=== PATIENT | female | born 1965 | race Caucasian/White ===

== ENCOUNTER 2023-11-07 19:06 | Inpatient (IN) | payer BC, SELFPAY ==
[2023-11-05 19:56] VITALS: BP 174/101
--- NOTE | 2023-11-05 20:14 | ED.GENMED ---
History of Present Illness
General
Chief Complaint: Flank Pain
Source: patient
Exam Limitations: none
Time Seen by Provider: 11/05/23 20:02
Nursing documentation reviewed up to this point in time: agreed with
Travel History
Have you had any contact with someone who has COVID-19?: No
Do you have any symptoms of coronavirus? Fever > 100 degrees, chills, cough, shortness of breath, sore throat, loss of taste or smell, muscle aches, or headache?: No
History of Present Illness
History of Present Illness:
Patient is a 58-year-old she started with little abdominal discomfort yesterday but today started with left flank pain around 1:00 at work. She reports this is worse than childbirth. She is nauseous with this pain. She tried meloxicam but is
unable to swallow pills well and spit it out. She now complains of pain to the left flank which is persistent. She is still nauseous. She has no history of kidney stones.
Review of Systems
Review of Systems
Allergies reviewed?: Yes
All Other Systems: ROS reviewed and negative except as documented in HPI and ROS
Constitutional: Reports no symptoms; Denies fever, fatigue or chills
Respiratory: Reports no symptoms
Cardiac: Reports no symptoms
ABD/GI: Reports no symptoms
Musculoskeletal: Reports other (left flank pain )
Skin: Reports no symptoms
Endocrine: Reports no symptoms
Hematologic/Lymphatic: Reports no symptoms
Psychiatric: Reports no symptoms
Phy Exam
General Physical Exam
General Presentation: no apparent distress
General age: appears stated age
General Skin: warm and dry
General Habitus: normal
General Mental: alert
General Hydration: appears well hydrated
Gastrointestinal Exam
Gastrointestinal Exam: non tender and soft
Neurological Exam
Neurological Exam: alert and oriented x3
Musculoskeletal Exam
Musculoskeletal Exam: full ROM
Skin Exam
Skin Exam: normal color and warm/dry
Psychiatric Exam
Psychiatric Exam: normal mood/affect
Course
Orders/Labs/Results
Orders:
Orders
11/05/23 19:50
EKG [Electrocardiogram (*1)] Urgent
Reason for Study: Chest Pain
EKG- Treatment ONCE
11/05/23 20:23
Complete Blood Count/With Diff Urgent
Comprehensive Metabolic Panel Urgent
11/05/23 20:24
0.9% Sodium Chloride 1000 ml [Nss] 1,000 ml IV BOLUS
Ketorolac [Toradol] 15 mg IV NOW STA
Ondansetron Injectable [Zofran] 4 mg IV NOW STA
11/05/23 20:33
UA Reflex to Culture [Urinalysis Reflex To Culture] Urgent
Date Specimen was Collected: 11/05/23
Time Specimen was Collected: 20:31
Urine Microscopic Reflex Cult Urgent
Urine Culture Urgent
ALEK Source: U
Specimen Description:
Date Specimen was Collected: 11/05/23
Time Specimen was Collected: 20:31
11/05/23 21:12
CT Abd/Pel (IV only)-DH only Urgent
Comment:
Reason For Exam: left flank pain + UTI
11/05/23 21:38
CefTRIAXone [Rocephin] 1,000 mg IV NOW STA
11/05/23 22:18
Ondansetron Injectable [Zofran] 4 mg IV NOW STA
11/05/23 22:46
Admit/Transfer Patient As Directed
Co-Sign Provider:
Level of Care: Observation services
Assign to:: Medical/Surgical
Physician / Group: Mario
Diagnosis: Left Nephrolithiasis with Hydronephrosis
11/05/23 22:47
Code Status As Directed
Resuscitation Status: Full Code
Abnormal Lab Results
11/05/23 11/05/23
20: 20:33
Hgb 10.8 L g/dL
(12.0-16.0)
Hct 33.4 L %
(37.0-47.0)
MCV 68.7 L fL
(81.0-99.0)
MCH 22.2 L pg
(27.0-31.0)
MCHC 32.3 L g/dL
(33.0-37.0)
RDW 16.0 H %
(11.5-14.5)
Absolute Neuts (auto) 7.6 H 10^3/uL
(1.4-6.5)
Absolute Lymphs (auto) 1.1 L 10^3/uL
(1.2-3.4)
Neutrophils % 80.6 H %
(42.2-75.2)
Lymphocytes % 11.4 L %
(20.5-51.1)
Sodium 132 L mmol/L
(135-145)
Carbon Dioxide 19 L mmol/L
(22-30)
Glucose 149 H mg/dl
(70-99)
Urine Ketones 3+ A
(Negative)
Ur Occult Blood Reflex 2+ A
(Negative)
Urine Nitrite (Reflex) Positive A
(Negative)
Leukocyte Esterase Rfl 2+ A
(Negative)
Urine WBC (Reflex) >100 A /HPF
(0-5)
Urine Bacteria (Reflex) Many A
(Negative)
11/05/23 20:23
11/05/23 20:23
Vital Signs
Initial and Last Documented VS:
Initial Vital Signs
Temp Pulse Resp BP Pulse Ox
98.1 F 108 20 174/101 99
11/05/23 19:56 11/05/23 19:56 11/05/23 19:56 11/05/23 19:56 11/05/23 19:56
Last Documented Vital Signs
Temp Pulse Resp BP Pulse Ox
98.1 F 90 20 174/101 95
11/05/23 19:56 11/05/23 22:26 11/05/23 19:56 11/05/23 19:56 11/05/23 22:26
MDM/Problems Addressed
Differential Diagnosis Includes:
Not limited to renal colic, UTI, pyelonephritis less likely diverticulitis
MDM/Problems Addressed:
Patient is a 58-year-old female who presents to the ER complaining left flank pain. Patient had slight abdominal discomfort last night however started today with left flank pain associate with nausea. Patient denies any fevers and is afebrile here
with a normal white count abdomen is soft and nontender no prior history of diverticulitis in the past. Urine does appear dirty with nitrates and greater than 100 white blood cells. Case discussed with radiology will order CT with IV contrast to
further evaluate pyelonephritis and look for hydronephrosis.
2207: CAT scan shows a 4 mm calculus in the proximal left ureter at the UPJ partially obstructive and causes mild left hydro. Urinalysis is infected. IV Rocephin ordered. Urology /hospitalist made aware. Will admit patient remains
hemodynamically stable in no acute distress
*Critical Care Note
Total Time (30-74mins, 75-104mins- exclusive of procedures): Not Applicable
Patient Management
Discussion with other providers: [employer] (urology DR Bean )
ED Attending Note
-
Portions of this chart may have been created with voice recognition software.� Occasional wrong word or��sound alike� substitutions may have occurred due to the inherent limitations of voice recognition software.
Discharge Plan
Departure
Patient Disposition: Admit
Date of Disposition: 11/05/23
Time of Disposition: 22:08
Presentation/result/management discussed w/ accepting MD/DO: Hospitalist
Condition: Fair
Covid-19: Not Applicable
Discharge Problem:
infected ureteral stone
Prescriptions:
No Action
meloxicam 15 mg tablet
15 mg PO DAILY PRN (Reason: knee/shoulder pain)
diazepam 2 mg tablet
2 - 4 mg PO Q6H PRN (Reason: vertigo)
Patient Comments:
11/05/2023: last filled 08/10/23, 20 tabs for 5 days from [facility]
omeprazole 20 mg Tablet,Disintegrat, Delay Rel
20 mg PO DAILY
Referrals:
NONE,* [Active] -
Interventions
Interventions:
*Risk Screen - Suicide Last Done: 11/05/23 20:39
*General Assessment Last Done: 11/05/23 20:39
*Neglect/Abuse Screening Last Done: 11/05/23 20:39
ED- Fall Risk Assessment Last Done: 11/05/23 20:39
EV-Kructx-Mogjmkazqu Assessment Last Done: 11/05/23 20:39
ED-Female Genitourinary Assessment Last Done: 11/05/23 20:39
Discharge Date and Time
Print Language: LAO
[2023-11-05] MEDS: ZOFRAN 4 MG IV ×2 (20:27→22:20)
[2023-11-05] MEDS: TORADOL 15 MG IV (20:27)
[2023-11-05] MEDS: NSS 1000 IV (20:28)
[2023-11-05 20:30] LABS: % Basophils 0.7 % (0-2); % Eosinophils 0.3 % (0-6); % Immature Granulocytes 0.4 % (0-0.5); % Lymphocytes 11.4 % (20.5-51.1); % Monocytes 6.6 % (1.7-9.3); % Neutrophils 80.6 % (42.2-75.2); Absolute Basophils 0.1 10^3/uL (0-0.2); Absolute Lymphocytes 1.1 10^3/uL (1.2-3.4); Absolute Monocytes 0.6 10^3/uL (0.1-0.6); Absolute Neutrophils 7.6 10^3/uL (1.4-6.5); Hematocrit 33.4 % (37.0-47.0); Hemoglobin 10.8 g/dL (12.0-16.0); Mean Corp Hgb Conc. 32.3 g/dL (33.0-37.0); Mean Corpuscular Hgb 22.2 pg (27.0-31.0); Mean Corpuscular Volume 68.7 fL (81.0-99.0); Mean Platelet Volume 9.4 fL (7.4-10.4); Nucleated Red Blood Cells % 0 %; Platelet Count 332 10^3/uL (130-400); Red Blood Cell Count 4.86 10^6/uL (4.20-5.40); White Blood Cell Count 9.5 10^3/uL (4.8-10.8)
[2023-11-05 20:39] LABS: Urine Albumin Trace (Neg - Trace); Urine Bilirubin Negative (Negative); Urine Character Slightly Cloudy (Clear); Urine Color Yellow; Urine Glucose Negative (Negative); Urine Ketone 3+ (Negative); Urine Leukocyte 2+ (Negative); Urine Nitrite Positive (Negative); Urine Occult Blood 2+ (Negative); Urine Urobilinogen Negative (Neg - 1+)
[2023-11-05 20:46] LABS: Urine Bacteria Many (Negative); Urine Squamous Cell 0-2 /LPF (Few); Urine White Cell >100 /HPF (0-5)
[2023-11-05 20:47] LABS: ALT (SGPT) 14 U/L (0-35); AST (SGOT) 26 U/L (14-36); Albumin 4.1 g/dl (3.5-5.0); Alkaline Phosphatase 111 U/L (38-126); Blood Urea Nitrogen 11 mg/dl (7-17); Calcium 9.2 mg/dl (8.4-10.2); Carbon Dioxide 19 mmol/L (22-30); Chloride 104 mmol/L (98-107); Glucose 149 mg/dl (70-99); Potassium 3.5 mmol/L (3.5-5.1); Sodium 132 mmol/L (135-145); Total Bilirubin 1.2 mg/dl (0.2-1.3); Total Protein 6.9 g/dl (6.3-8.2); eGFR > 60.00
[2023-11-05] MEDS: ROCEPHIN 1000 MG IV (21:57)
--- NOTE | 2023-11-05 22:33 | HPS.HSE ---
Addendum entered and electronically signed by Wander Martin DO 11/05/23 23:18:
Addendum to plan
Left Nephrolithiasis
- Order to strain urine placed
- see rest of plan as below
Hyponatremia
- Na 132. Likely hypoosmotic hypovolemic etiology
- S/P 1LNS in ER. Continue NS @ 100cc/hr and trend for improvement.
Original Note:
Family Physician
-
Family Physician: Kush Dumont
Chief Complaint
-
Left Flank Pain/N/V x 3 days, more severe today
History of Present Illness
58yo F with PMH GERD, Aortic Stenosis, Vertigo, Inability to tolerate oral medications (unless possibly crushed) presents to ER with complaint of Left Flank Pain. Pt states about 2-3 days ago she experienced more generalized abdominal discomfort
that she associated with constipation. Today however she noticed severe Left flank pain with nausea and dry heaving. +Mild dysuria today with chills. Denies hx kidney stones or recurrent UTIs. Denies fever, dizziness/LH, CP, palps, wheezing, cough,
sob, vomitting, dysuria, calf or leg pain.
ER course: Pt presents BP 174/19, HR 108, Afebrile. WBC 9.5K. BUN/Cr 11/0.8, BG 149, UA grossly positive. CT a/p: 4 mm calculus in the proximal left ureter at the ureteropelvic junction is partially obstructive and causes mild left hydronephrosis.
Urology notified. S/P 1 gm IV rocephin, 15mg IV toradol, 1LNS, and 4mg IV zofran x 2 in ER.
Medical History
Past Medical History
Past Medical History: Reports Other (GERD, Heart murmur, Vertigo)
Past Surgical History: Reports Other (Cholecystectomy, , Meniscus Repair Right knee)
Social History
Tobacco: Non-smoker
Alcohol: None
Drug: None
Personal:
Living: With Family
Family History
Family History: Not pertinent (Father with CAD s/p [place]. Denies kidney stone or urologic family history. )
Allergies / Home Medications
Allergies reflects when Allergies were last updated in [facility].
Home Medications with original date entered in [facility]
Allergy/Medication List:
Allergies
Allergy/AdvReac Type Severity Reaction Status Date / Time
Penicillins Allergy Unknown Unknown Verified 11/05/23 20:00
Home Medications
diazepam 2 mg tablet 2 - 4 mg PO Q6H PRN vertigo 11/05/23
meloxicam 15 mg tablet 15 mg PO DAILY PRN knee/shoulder pain 11/05/23
omeprazole 20 mg delayed release,disintegrating tablet 20 mg PO DAILY 11/05/23
Review of Systems
-
A 12 point ROS was completed and negative except as noted: Yes
Physical Exam
Vital Signs
Vital Signs
Temp Pulse Resp BP Pulse Ox
98.1 F 90 20 174/101 95
11/05/23 19:56 11/05/23 22:26 11/05/23 19:56 11/05/23 19:56 11/05/23 22:26
Physical Exam
General: Well Developed, Well Nourished and No Apparent Distress
HEENT: NormoCephalic, Moist mucous membranes and Atraumatic
Respiratory: Clear
Cardiac: S1/S2, Regular Rhythm, Murmur and Rub
GI: Soft, Non Tender, Non Distended and Normal Bowel Sounds; No Organomegaly
Rectal: Deferred by Provider
Genito-urinary: Other (Minimal Left CVA TTP. )
Musculoskeletal: No Clubbing, No Cyanosis and No Edema
Skin: Warm and Dry; No Rash
Neuro: Awake, Alert, Oriented, AO x 3 and Nonfocal/grossly intact
Hematologic/Lymphatic: No Lymphadenopathy
Psych: Calm
Laboratory Results
-
11/05/23 20:23
11/05/23 20:23
Laboratory Results
Total Bilirubin 1.2 mg/dl (0.2-1.3) 11/05/23 20:23
AST 26 U/L (14-36) 11/05/23 20:23
ALT 14 U/L (0-35) 11/05/23 20:23
Alkaline Phosphatase 111 U/L (38-126) 11/05/23 20:23
Data Reviewed
-
Diagnostic Radiology: Image Personally Visualized and interpreted
CT Scan: Image Personally Visualized and interpreted
Lab Data: Labs Reviewed by me
Old Records: Reviewed
Impression/Plan
-
Left Nephrolithiasis / Left Hydronephrosis
- 2-3 day complaint of abdominal pain with left flank pain
- Afebrile. WBC 9.5K. S/P 15mg IV toradol, 1LNS, 4mg IV zofran in ER.
- Continue 15mg IV toradol prn and 4mg IV morphine Q6h prn.
- Continue NS @ 100cc/hr
- Will defer Flomax as pt reports unable to tolerate PO
- NPO. Consult urology.
UTI
- UA Many Bact, >100WBC, 2+LE, (-) Nitrite, 2+Blood
- Continue Rocephin 1gm IV daily started in ER. Follow up UCx
Microcytic Anemia
- Hgb 10.8 g/dL. MCV 68. No prior studies. Denies bleeding
- Check iron studies
GERD
- Convert PPI to IV. States she can only take liquid meds.
Vertigo
- Continue home prn valium. Likely to aid with anxiety from #1
Aortic Stenosis
- TTE 11/05/2023: EF 55-60%, no WMA, Normal Diastolic Dysfunction, Mild-Mod A.S Valve Area 1.2 CM^2
- Close monitoring of pre-load and cardiopulm status with IVF
Inability to tolerate tablet form of medications
- Noted. Hesitant to try meds crushed as well.
Diet - NPO
DVT PPx - Lovenox
Code Status - Full Code
[2023-11-06] VITALS (22 sets, daily range): BP systolic 97–174; BP diastolic 63–110; BMI 33.5; BMI 33.6
[2023-11-06] MEDS: NSS 1000 IV ×2 (00:06→10:40)
[2023-11-06 05:37] LABS: % Basophils 0.4 % (0-2); % Eosinophils 0.3 % (0-6); % Immature Granulocytes 0.3 % (0-0.5); % Lymphocytes 15.8 % (20.5-51.1); % Monocytes 5.9 % (1.7-9.3); % Neutrophils 77.3 % (42.2-75.2); Absolute Basophils 0.1 10^3/uL (0-0.2); Absolute Lymphocytes 1.8 10^3/uL (1.2-3.4); Absolute Monocytes 0.7 10^3/uL (0.1-0.6); Absolute Neutrophils 8.8 10^3/uL (1.4-6.5); Hemoglobin 9.9 g/dL (12.0-16.0); Mean Corp Hgb Conc. 30.9 g/dL (33.0-37.0); Mean Corpuscular Hgb 22.4 pg (27.0-31.0); Mean Corpuscular Volume 72.6 fL (81.0-99.0); Mean Platelet Volume 9.6 fL (7.4-10.4); Nucleated Red Blood Cells % 0 %; Platelet Count 279 10^3/uL (130-400); Red Blood Cell Count 4.41 10^6/uL (4.20-5.40); Red Cell Dist. Width 15.9 % (11.5-14.5); White Blood Cell Count 11.4 10^3/uL (4.8-10.8)
[2023-11-06] MEDS: TORADOL 15 MG IV ×3 (05:43→21:48)
[2023-11-06] MEDS: ZOFRAN 4 MG IV (05:47)
[2023-11-06 06:06] LABS: Blood Urea Nitrogen 10 mg/dl (7-17); Calcium 8.7 mg/dl (8.4-10.2); Carbon Dioxide 25 mmol/L (22-30); Chloride 108 mmol/L (98-107); Estimated Creatinine Clearance 83 ml/min; Glucose 104 mg/dl (70-99); Iron 42 ug/dl (37-170); Potassium 3.8 mmol/L (3.5-5.1); Sodium 137 mmol/L (135-145); eGFR > 60.00
[2023-11-06 06:15] LABS: Percent Saturation 11 % (20-50); Total Iron Binding Capacity 358 ug/dl (265-497)
[2023-11-06] MEDS: MORPHINE SULFATE 4 MG IV (06:23)
[2023-11-06] MEDS: PROTONIX IV 40 MG IV (08:44)
[2023-11-06] MEDS: NSS (PRESERVATIVE FREE) 10 ML IV (08:45)
--- NOTE | 2023-11-06 09:12 | W.PN.URO.CBU ---
Today's Communication / Plan
-
npo to op room
Assessment / Plan
-
partially obstructing left upj stone with elevating white count and nitrate pos u/a and ongoing severe pain
Diagnosis
-
Date of Service: November 06, 2023
-
Patient Diagnosis:left 4 mm stone intractable pain an partial obstruction with elevatd wbc today and nitrates in urine
Post Op Day:
Subjective
-
significant left flank pain requring parenteral pain management
Objective
-
Vital Signs
Temp Pulse Resp BP Pulse Ox
98.1 F 90 20 174/101 95
11/05/23 19:56 11/05/23 22:26 11/05/23 19:56 11/05/23 19:56 11/05/23 22:26
Laboratory Results
11/06/23 05:26
11/06/23 05:26
Review of Systems
-
Abdomen/GI: Abdominal Pain and Nausea
: Flank Pain
Physical Exam
-
General - well developed, well nourished, no acute distresspain non toxic
Chest - clear bilaterally
Abdomen - soft, non-tender, positive bowel sounds, no CVAT, no incisional pain or distention
Genitalia - normal
Rectal - normal
Skin - warm & dry with no rash
Neuro - AOx3, no motor deficits
Extremities - no clubbing, no cyanosis, no edema
Incision - clean, dry
Dressing - clean, dry, intact
Care Review
Data Reviewed
Discussed with: Nursing and Family ()
CT Scan: Image Pers Reviewed
--- NOTE | 2023-11-06 09:32 | W.PN.HOSP.TC ---
Today's Communication/Plan
-
IV fluids. IV antibiotics. Plan for urological surgery today.
Assessment / Plan
Assessment / Plan
Physical exam:
General: Well Developed, Well Nourished and Apparent Distress due to pain
HEENT: Normocephalic, Atraumatic and Moist Mucous Membranes
Respiratory: Clear to Auscultation; Negative Wheezes, Rales or Rhonchi
Cardiac: Regular Rhythm and S1/S2
GI: Soft, Nontender anteriorly but flank tenderness still present and Nondistended
Musculoskeletal: No Clubbing, No Cyanosis and No Edema
Neuro: Awake, Alert and Oriented
Psych: Calm
A/P:
Left Nephrolithiasis / Left Hydronephrosis
- 2-3 day complaint of abdominal pain with left flank pain
- Afebrile. WBC 9.5K. S/P 15mg IV toradol, 1LNS, 4mg IV zofran in ER. Today WBC 11.4
- Continue 15mg IV toradol prn and 4mg IV morphine Q6h prn.
- Continue NS @ 100cc/hr
- Will defer Flomax as pt reports unable to tolerate PO
- NPO. Consult urology and plan to take her to the OR today.
-Discussed with family at bedside today in the ED
UTI
- UA Many Bact, >100WBC, 2+LE, (-) Nitrite, 2+Blood
- Continue Rocephin 1gm IV daily started in ER. Follow up UCx- pending. WBC up 11.4
Hyponatremia
Sodium 132 upon admission--> up to 137 today
Microcytic Anemia
- Hgb 10.8 g/dL. MCV 68. No prior studies. Denies bleeding. Hb 9.9 today
- Check iron studies
GERD
- Convert PPI to IV. States she can only take liquid meds.
Vertigo
- Continue home prn valium. Likely to aid with anxiety from #1
Aortic Stenosis
- TTE 11/05/2023: EF 55-60%, no WMA, Normal Diastolic Dysfunction, Mild-Mod A.S Valve Area 1.2 CM^2
- Close monitoring of pre-load and cardiopulm status with IVF
Inability to tolerate tablet form of medications
- Noted. Hesitant to try meds crushed as well.
Diet - NPO
DVT PPx - Lovenox
Code Status - Full Code
Anticipated Discharge: 24 - 48 hours
Subjective/Interval History
-
Date of Service: November 06, 2023
Patient still having some flank pain. Afebrile. No chest pain or shortness of breath.
Objective Data
-
Labs:
Laboratory Results
11/06/23
05:26
WBC 11.4 H
Hgb 9.9 L
Hct 32.0 L
Plt Count 279
Sodium 137
Potassium 3.8
Chloride 108 H
Carbon Dioxide 25
BUN 10
Creatinine 0.8
Glucose 104 H
Calcium 8.7
Vital Signs:
Vital Signs
Temp Pulse Resp BP Pulse Ox
98.1 F 90 20 174/101 95
11/05/23 19:56 11/05/23 22:26 11/05/23 19:56 11/05/23 19:56 11/05/23 22:26
Review of Systems
-
All other systems: Reviewed and negative
--- NOTE | 2023-11-06 10:59 | CM ---
CM reviewed medical records. OBS letter given. CM confirmed demographics. Patient lives independently with . NO history of VN, SNF or DME.
PLAN: No home needs.
[2023-11-06] MEDS: DILAUDID 0.5 MG IV (14:13)
[2023-11-06] MEDS: DILAUDID 0.25 MG IV ×2 (14:28→14:36)
--- NOTE | 2023-11-06 14:29 | SUR.PHASEI ---
Patient very anxious, reporting severe pain and need to use bathroom, patient place on bedpan, no void. pain control per anesthesia orders. Gatito Moore RN BSN.
--- NOTE | 2023-11-06 14:38 | SUR.PHASEI ---
Patient remains anxious, pain levels improved post Dilaudid, VSS. Ice Chips given, bedpan with no void for second time, abdomen is not distended. Gatito Moore RN BSN.
[2023-11-06] MEDS: NORMOSOL-R 1000 IV (14:45)
--- NOTE | 2023-11-06 17:24 | SUR.PHASEI ---
Patient stable, and daughter allowed visitation. VSS. No signs of impending sepsis, restful. Voiding on bedpan w/d. waiting for room to be ready. Initial bed had alarm sounding, maintainace unable to fix, patient transferred into new
functioning bed. Gatito Moore RN BSN.
--- NOTE | 2023-11-06 18:45 | PTCARENOTE ---
Received pt from PACU via bed, accompanied by PACU staff x2. Pt AAO x3, CROCKETT well. VSS. On room air- pulse ox 93%, no c/o SOB. Abd large, soft, BS (+); to start clear liquid diet. Pt voided small a mt pink- tinged urine in BR upon arrival to
unit. oriented to 4[address], currently resting comfortably. Will continue to monitor.
[2023-11-06] MEDS: LOVENOX 40 MG SC (19:46)
[2023-11-06] MEDS: MIRALAX 17 GRAMS PO (20:36)
[2023-11-06] MEDS: ROCEPHIN 1000 MG IV (21:45)
[2023-11-06] MEDS: STERILE WATER FOR INJECTION 10 ML IV (21:45)
[2023-11-07 03:15] VITALS: BP 127/75
[2023-11-07] MEDS: MOTRIN 400 MG PO ×2 (03:46→16:12)
[2023-11-07 05:41] LABS: % Basophils 0.2 % (0-2); % Immature Granulocytes 0.6 % (0-0.5); % Lymphocytes 4.5 % (20.5-51.1); % Monocytes 4.1 % (1.7-9.3); % Neutrophils 90.6 % (42.2-75.2); Absolute Immature Granulocytes 0.1 10^3/uL (0-0.05); Absolute Lymphocytes 0.7 10^3/uL (1.2-3.4); Absolute Monocytes 0.6 10^3/uL (0.1-0.6); Absolute Neutrophils 13.2 10^3/uL (1.4-6.5); Hematocrit 29.4 % (37.0-47.0); Hemoglobin 9.1 g/dL (12.0-16.0); Mean Corpuscular Hgb 22.2 pg (27.0-31.0); Mean Corpuscular Volume 71.9 fL (81.0-99.0); Mean Platelet Volume 10.4 fL (7.4-10.4); Nucleated Red Blood Cells % 0 %; Platelet Count 272 10^3/uL (130-400); Red Blood Cell Count 4.09 10^6/uL (4.20-5.40); Red Cell Dist. Width 15.9 % (11.5-14.5); White Blood Cell Count 14.6 10^3/uL (4.8-10.8)
[2023-11-07 06:07] LABS: Blood Urea Nitrogen 15 mg/dl (7-17); Calcium 8.5 mg/dl (8.4-10.2); Carbon Dioxide 23 mmol/L (22-30); Chloride 106 mmol/L (98-107); Estimated Creatinine Clearance 74 ml/min; Glucose 129 mg/dl (70-99); Potassium 3.6 mmol/L (3.5-5.1); Sodium 137 mmol/L (135-145); eGFR > 60.00
[2023-11-07 07:40] VITALS: BP 157/81
[2023-11-07] MEDS: NSS (PRESERVATIVE FREE) 10 ML IV (08:02)
[2023-11-07] MEDS: PROTONIX IV 40 MG IV (08:03)
[2023-11-07] MEDS: MIRALAX 17 GRAMS PO (08:12)
--- NOTE | 2023-11-07 08:12 | W.PN.HOSP.TC ---
Today's Communication/Plan
-
Continue antibiotics. Urology reeval
Assessment / Plan
Assessment / Plan
Physical exam:
General: Well Developed, Well Nourished and no Apparent Distress
HEENT: Normocephalic, Atraumatic and Moist Mucous Membranes
Respiratory: Clear to Auscultation; Negative Wheezes, Rales or Rhonchi
Cardiac: Regular Rhythm and S1/S2
GI: Soft, Nontender and Nondistended
Musculoskeletal: No Clubbing, No Cyanosis and No Edema
Neuro: Awake, Alert and Oriented
Psych: Calm
A/P:
Left Nephrolithiasis / Left Hydronephrosis
- 2-3 day complaint of abdominal pain with left flank pain
- Afebrile. WBC 9.5K. S/P 15mg IV toradol, 1LNS, 4mg IV zofran in ER. Today WBC 14.6
- Continue 15mg IV toradol prn and 4mg IV morphine Q6h prn.
- Continue NS @ 100cc/hr
- Will defer Flomax as pt reports unable to tolerate PO
- Consulted urology and status post taken to the OR yesterday on 11/05
-Discussed with family at bedside today again
-With her children her white count today might need to stay overnight until tomorrow unless urology clears her for today. Follow-up urology recommendations
UTI
- UA Many Bact, >100WBC, 2+LE, (-) Nitrite, 2+Blood
- Continue Rocephin 1gm IV daily started in ER. Follow up UCx- pending. WBC up 14.6
Hyponatremia
Sodium 132 upon admission--> up to 137 today
Microcytic Anemia
- Hgb 10.8 g/dL. MCV 68. No prior studies. Denies bleeding. Hb 9.9 today
- Check iron studies
GERD
- Convert PPI to IV. States she can only take liquid meds.
Vertigo
- Continue home prn valium. Likely to aid with anxiety from #1
Aortic Stenosis
- TTE 11/05/2023: EF 55-60%, no WMA, Normal Diastolic Dysfunction, Mild-Mod A.S Valve Area 1.2 CM^2
- Close monitoring of pre-load and cardiopulm status with IVF
Inability to tolerate tablet form of medications
- Noted. Hesitant to try meds crushed as well.
Diet - NPO
DVT PPx - Lovenox
Code Status - Full Code
Anticipated Discharge: 24 - 48 hours
Subjective/Interval History
-
Date of Service: November 07, 2023
Patient feels better today. Afebrile
Objective Data
-
Labs:
Laboratory Results
11/07/23
04:58
WBC 14.6 H
Hgb 9.1 L
Hct 29.4 L
Plt Count 272
Sodium 137
Potassium 3.6
Chloride 106
Carbon Dioxide 23
BUN 15
Creatinine 0.9
Glucose 129 H
Calcium 8.5
Vital Signs:
Vital Signs
Temp Pulse Resp BP Pulse Ox
98.1 F 79 18 127/75 97
11/07/23 03:15 11/07/23 03:15 11/07/23 03:15 11/07/23 03:15 11/07/23 03:15
I&O
11/06/23 11/07/23 11/08/23
06:59 06:59 06:59
Intake Total 830 / 830
Output Total 720 / 720
Balance 110 / 110
[2023-11-07] MEDS: TORADOL 15 MG IV ×2 (11:03→17:21)
[2023-11-07] MEDS: ROCEPHIN 1000 MG IV (12:44)
[2023-11-07] MEDS: STERILE WATER FOR INJECTION 10 ML IV (12:45)
--- NOTE | 2023-11-07 14:10 | W.PN.URO.CBU ---
Today's Communication / Plan
-
advance diet
Assessment / Plan
-
partially obstructing left upj stone removed afebrile vbut 100k colonis possible uti vs contaminant and elevating wbc wll comntinue iv anpbs and monitr wbc if stabilizs home in am
Diagnosis
-
Date of Service: November 07, 2023
-
Patient Diagnosis:
Post Op Day:
Patient Diagnosis:left 4 mm stone intractable pain an partial obstruction with elevatd wbc today and nitrates in urine
Post Op Day:
Subjective
-
stent pain no colic
Objective
-
Vital Signs
Temp Pulse Resp BP Pulse Ox
97.8 F 79 18 157/81 97
11/07/23 07:40 11/07/23 07:40 11/07/23 07:40 11/07/23 07:40 11/07/23 07:40
Intake and Output
11/06/23 11/07/23 11/08/23
06:59 06:59 06:59
Intake Total 830 / 830
Output Total 720 / 720 200 / 200
Balance 110 / 110 -200 / -200
Intake:
Oral fluids 480 / 480
IV fluids (Total) 350 / 350
Norm 50 / 50
Nss 1,000 ml @ 100 mls/hr IV . 300 / 300
Q10H KAILA Rx#:[id number]
Output:
Urine, Voided 720 / 720 200 / 200
Laboratory Results
11/07/23 04:58
11/07/23 04:58
Review of Systems
-
: Dysuria, Frequency and Urgency
Physical Exam
-
General - well developed, well nourished, no acute distressnon toxic
Chest - clear bilaterally
Abdomen - soft, non-tender, positive bowel sounds, no CVAT, no incisional pain or distention
Genitalia - normal
Rectal - normal
Skin - warm & dry with no rash
Neuro - AOx3, no motor deficits
Extremities - no clubbing, no cyanosis, no edema
Incision - clean, dry
Dressing - clean, dry, intact
Counseling
-
possibly home in am
Care Review
Data Reviewed
Discussed with: Hospitalist, Nursing and Family
CT Scan: Image Pers Reviewed
[2023-11-07] MEDS: LOVENOX 40 MG SC (17:21)
[2023-11-07 23:33] VITALS: BP 125/72
[2023-11-08] MEDS: MOTRIN 400 MG PO ×2 (01:21→07:48)
[2023-11-08 04:58] LABS: % Basophils 0.6 % (0-2); % Eosinophils 1.7 % (0-6); % Immature Granulocytes 0.5 % (0-0.5); % Monocytes 5.6 % (1.7-9.3); % Neutrophils 79.6 % (42.2-75.2); Absolute Eosinophils 0.1 10^3/uL (0-0.7); Absolute Lymphocytes 0.8 10^3/uL (1.2-3.4); Absolute Monocytes 0.4 10^3/uL (0.1-0.6); Absolute Neutrophils 5.2 10^3/uL (1.4-6.5); Hematocrit 30.2 % (37.0-47.0); Hemoglobin 9.2 g/dL (12.0-16.0); Mean Corp Hgb Conc. 30.5 g/dL (33.0-37.0); Mean Corpuscular Hgb 22.2 pg (27.0-31.0); Mean Corpuscular Volume 72.8 fL (81.0-99.0); Mean Platelet Volume 9.8 fL (7.4-10.4); Nucleated Red Blood Cells % 0 %; Platelet Count 234 10^3/uL (130-400); Red Blood Cell Count 4.15 10^6/uL (4.20-5.40); Red Cell Dist. Width 15.9 % (11.5-14.5); White Blood Cell Count 6.6 10^3/uL (4.8-10.8)
[2023-11-08 07:00] VITALS: BP 142/84
[2023-11-08] MEDS: PROTONIX IV 40 MG IV (07:39)
[2023-11-08] MEDS: NSS (PRESERVATIVE FREE) 10 ML IV (07:39)
--- NOTE | 2023-11-08 07:40 | W.PN.HOSP.TC ---
Today's Communication/Plan
-
Discharge planning today.
Assessment / Plan
Assessment / Plan
Physical exam:
General: Well Developed, Well Nourished and no Apparent Distress
HEENT: Normocephalic, Atraumatic and Moist Mucous Membranes
Respiratory: Clear to Auscultation; Negative Wheezes, Rales or Rhonchi
Cardiac: Regular Rhythm and S1/S2
GI: Soft, Nontender and Nondistended
Musculoskeletal: No Clubbing, No Cyanosis and No Edema
Neuro: Awake, Alert and Oriented
Psych: Calm
A/P:
Left Nephrolithiasis / Left Hydronephrosis
- 2-3 day complaint of abdominal pain with left flank pain
- Afebrile. WBC 9.5K. S/P 15mg IV toradol, 1LNS, 4mg IV zofran in ER. Today WBC 6.6
- Continue 15mg IV toradol prn and 4mg IV morphine Q6h prn.
- Continue NS @ 100cc/hr
- Will defer Flomax as pt reports unable to tolerate PO
- Consulted urology and taken to the OR on 11/05
-Discussed with family at bedside today again
UTI
- UA Many Bact, >100WBC, 2+LE, (-) Nitrite, 2+Blood
- Continue Rocephin 1gm IV daily started in ER. Follow up UCx- pending. WBC normal down to 6.6 today
-Change to oral Keflex today. She cannot take any pills so it will be in solution. She had allergic reaction to penicillins, described as rash. Tolerating ceftriaxone well.
Hyponatremia
Sodium 132 upon admission--> up to 137 yesterday
Microcytic Anemia
- Hgb 10.8 g/dL. MCV 68. No prior studies. Denies bleeding. Hb 9.2 today
- Check iron studies
GERD
- Convert PPI to IV. States she can only take liquid meds.
Vertigo
- Continue home prn valium. Likely to aid with anxiety from #1
Aortic Stenosis
- TTE 11/05/2023: EF 55-60%, no WMA, Normal Diastolic Dysfunction, Mild-Mod A.S Valve Area 1.2 CM^2
- Close monitoring of pre-load and cardiopulm status with IVF
Inability to tolerate tablet form of medications
- Noted. Hesitant to try meds crushed as well.
DVT PPx - Lovenox
Code Status - Full Code
Anticipated Discharge: Today
Subjective/Interval History
-
Date of Service: November 08, 2023
Patient still has flank discomfort and mild urinary symptoms but overall improved. Afebrile
Objective Data
-
Labs:
Laboratory Results
11/08/23
04:43
WBC 6.6
Hgb 9.2 L
Hct 30.2 L
Plt Count 234
Vital Signs:
Vital Signs
Temp Pulse Resp BP Pulse Ox
98.8 F 83 18 125/72 98
11/07/23 23:33 11/07/23 23:33 11/07/23 23:33 11/07/23 23:33 11/07/23 23:33
I&O
11/07/23 11/08/23 11/09/23
06:59 06:59 06:59
Intake Total 830 / 830 1680 / 1680
Output Total 720 / 720 325 / 325
Balance 110 / 110 1355 / 1355
[2023-11-08] MEDS: ROCEPHIN 1000 MG IV (11:30)
[2023-11-08] MEDS: STERILE WATER FOR INJECTION 10 ML IV (11:31)
--- NOTE | 2023-11-08 12:17 | W.DCSUMMARY ---
Discharge Summary
Discharge Data
Date of Admission: 11/07/23
Date of Discharge: 11/08/23
-
Pending Results: No
Hospital Course
Patient 58-year-old female history of aortic stenosis GERD, presented to the hospital left leg pain and found to have an ureteral stone. Urology consulted. She was taken to the operating room by urology and she had a ureteral stent placed. She
also had signs of urinary tract infection so she was started on IV antibiotics. Her white blood cell count was as high as 14.6 during this hospital stay and with treatment and went down to 6.6. Her urine culture had mixed hanna present greater
than 100,000 CFU per mL. Urology recommended to continue treatment of antibiotics. She did have some penicillin allergy with some rash and also she had multiple intolerance of swallowing any pills so it was decided to switch to oral cephalexin
solution upon discharge. Otherwise, patient is hemodynamically stable and afebrile and her urinary symptoms improving. She will be discharged in stable condition today.
Discharge duration: 35 minutes
Discharge Plan
-
Patient Disposition: Home (Routine Discharge)
Discharge Diagnosis/Procedures: Ureteral stone. Urinary tract infection.
Diet: Low Cholesterol
Activity: As tolerated
Blood Work: Please PCP to order CBC, BMP within 1 week
Referrals:
Hola Bean MD [Active] -
Kush Dumont MD [Family Provider] - in less than 1 week
Additional Discharge Medication Instructions: you have a stent Expect frequency urgency blood in urine and left flank discomfort on voiding Call Dr King or Dr Bean [phone] to set up next phase treatment
Prescriptions:
New
cephalexin 250 mg/5 mL Suspension For Reconstitution
500 mg PO BID 5 Days Qty: 100 0RF
ibuprofen 100 mg/5 mL Suspension
400 mg PO Q6HPRN PRN (Reason: MILD PAIN) 5 Days Qty: 120 0RF
Continued
diazepam 2 mg tablet
2 - 4 mg PO Q6H PRN (Reason: vertigo)
Patient Comments:
11/05/2023: last filled 08/10/23, 20 tabs for 5 days from [id number]
omeprazole 20 mg Tablet,Disintegrat, Delay Rel
20 mg PO DAILY
Discontinued
meloxicam 15 mg tablet
15 mg PO DAILY PRN (Reason: knee/shoulder pain)
Discharge Orders:
Discharge Patient (As Directed); Ordered 11/08/23
Ordered By: Marcus El
Discharge Date and Time
Discharge Date/Time: 11/08/23 15:00
Print Language: ETHIOPIAN
--- NOTE | 2023-11-08 13:10 | CM ---
MD entered order for discharge.
Spoke with patient she is ready for dc.
Bobby will drive her home.
[facility]An Home no needs
[2023-11-10 20:48] LABS: Stone Analysis Mass 14 mg
== END 2023-11-08 15:00 | disposition home or self-care (01) | DRG 660 ==
LOC: 4 EAST ACU 19:06
PROVIDERS: Nurse Practitioner; Specialist; ADMITTING PHYSICIAN Internal Medicine; ATTENDING PHYSICIAN Hospitalist; CONSULT PHYSICIAN Specialist; EMERGENCY PHYSICIAN Emergency Medicine; FAMILY PHYSICIAN Family Medicine
PROC: 0TC78ZZ Extirpation of Matter from Left Ureter, Via Natural or Artificial Opening Endoscopic (ICD-10-PCS; 2023-11-06)
PROC: 0T778DZ Dilation of Left Ureter with Intraluminal Device, Via Natural or Artificial Opening Endoscopic (ICD-10-PCS; 2023-11-06)
DX: N13.6 Pyonephrosis (principal); E87.1 Hypo-osmolality and hyponatremia; D50.9 Iron deficiency anemia, unspecified; K21.9 Gastro-esophageal reflux disease without esophagitis; I35.0 Nonrheumatic aortic (valve) stenosis; E86.1 Hypovolemia; F06.4 Anxiety disorder due to known physiological condition
CPT/HCPCS: 74018; 74177; 76000; 80048; 80053; 81003; 81015; 82365; 82728; 83540; 83550; 85025; 87086; 93005; 96361; 96374; 96375; 99285; C1894; C2617; Q9967